=== PATIENT | male | born 1970 | race Caucasian/White ===

== ENCOUNTER 2024-10-18 10:52 | Observation (INO) | payer OTHER ==
[~2024-10-18] VITALS: Ht 185.4 cm; Wt 208.1 kg
[2024-10-18] MEDS ORDERED: Ketorolac Tromethamine 15mg Vial IV ONE (11:15)
[2024-10-18] MEDS ORDERED: Ondansetron HCl 2 MG / ML 2ML Vial IV ONE (11:15)
[2024-10-18] MEDS ORDERED: NS 1,000 ML IV SCH (11:15)
[2024-10-18 11:22] LABS: BASOPHILS ABSOLUTE AUTO 0.06 K/mm3 (0.00-0.23); BASOPHILS PERCENT AUTO 1 % (0-2); EOSINOPHILS ABSOLUTE AUTO 0.02 K/mm3 (0.00-0.68); EOSINOPHILS PERCENT AUTO 0 % (0-6); Hematocrit 44.2 % (37.0-53.0); Hemoglobin 15.4 g/dL (13.5-17.5); IMMATURE GRAN ABSOLUTE AUTO 0.03 K/mm3 (0.00-0.10); IMMATURE GRAN PERCENT AUTO 0 % (0-1); LYMPHOCYTES PERCENT AUTO 21 % (21-46); MONOCYTES ABSOLUTE AUTO 0.54 K/mm3 (0.16-1.47); MONOCYTES PERCENT AUTO 6 % (4-13); Mean Corpuscular HGB 29.7 pg (26.0-34.0); Mean Corpuscular HGB Conc 34.8 g/dL (31.5-36.5); Mean Corpuscular Volume 85 fL (80-100); Mean Platelet Volume 9.8 fL (9.1-12.4); NEUTROPHILS ABSOLUTE AUTO 6.31 K/mm3 (1.96-9.15); NEUTROPHILS PERCENT AUTO 71 % (41-73); Platelet Count 271 K/mm3 (150-400); RDW Coefficient Variation 13.2 % (11.7-14.2); RDW Standard Deviation 41.2 fL (35.1-46.3); Red Blood Cell Count 5.18 M/mm3 (4.30-5.90); White Blood Cell Count 8.86 K/mm3 (4.00-11.30)
[2024-10-18 11:40] LABS: Bilirubin, Total 1.2 mg/dL (0.1-1.0); Bun/Creatinine Ratio 18.9 (12.0-20.0); Calcium, Blood 9.1 mg/dL (8.5-10.1); Creatinine, Blood 0.64 mg/dL (0.60-1.20); Globulin, Blood 3.9 g/dL (2.2-4.0); Potassium, Blood 3.8 mmol/L (3.5-5.5); Total Protein, Blood 7.9 g/dL (6.4-8.2)
[2024-10-18 11:58] LABS: Source, Urine Clean Catch
[2024-10-18 12:02] LABS: Appearance, Urine Clear (Clear); Bilirubin, Urine Neg (Neg); Blood, Urine Neg (Neg); Glucose Qualitative, Urine 4+ (Neg); Ketones, Urine 3+ (Neg); Leukocyte Esterase, Urine Neg (Neg); Nitrite, Urine Neg (Neg); Protein, Urine 2+ (Neg); Urobilinogen, Urine NORM (Normal)
[2024-10-18 12:05] LABS: Color, Urine Pale Yellow (P-Yellow)
[2024-10-18 12:08] LABS: Bacteria Not Seen /hpf; Red Blood Cells, Urine Not Seen /hpf (0-2); Squamous Epithelial Cells Rare /hpf (Few); White Blood Cells, Urine 0-2 /hpf (0-5)
[2024-10-18 12:11] LABS: Base Excess Venous -1.7 mmol/L; Bicarbonate Venous 23.6 mmol/L (24.0-30.0); PCO2 Venous 33.9 mmHg (38-42); pH Blood Venous 7.43 (7.34-7.37)
[2024-10-18] MEDS ORDERED: Polyethylene Glycol 3350 17 gm PO PRN (16:00)
[2024-10-18] MEDS ORDERED: ALPRAZolam 0.25 MG Tab PO PRN (16:05)
[2024-10-18] MEDS ORDERED: Acetaminophen 325 MG TABLET PO PRN (16:05)
[2024-10-18] MEDS ORDERED: Ketorolac Tromethamine 15mg Vial IV PRN (16:15)
[2024-10-18] MEDS ORDERED: Insulin Human Lispro 100 Units/ML 3ML Syringe SC SCH (16:30)
[2024-10-18] MEDS ORDERED: MetFORMIN HCl 500 mg PO SCH (17:00)
[2024-10-18] MEDS ORDERED: Insulin Glargine-Yfgn 100 Unit/mL 3 ML SYR SC SCH (17:00)
[2024-10-18 17:25] VITALS: BP 136/94
[2024-10-18] MEDS ORDERED: ONDA4 PO (17:35)
[2024-10-18 20:29] VITALS: BP 131/95
[2024-10-18] MEDS ORDERED: Docusate Sodium/Senna 1 Tab PO SCH (21:00)
[2024-10-18] MEDS ORDERED: NS 1,000 ML IV ONE (21:20)
[2024-10-19] MEDS ORDERED: Gabapentin 100 MG Cap PO PRN (01:40)
[2024-10-19] MEDS ORDERED: Prochlorperazine Edisylate 10 mg Vial IV PRN (01:40)
[2024-10-19] MEDS ORDERED: Melatonin 5 MG Tablet PO PRN (01:40)
--- NOTE | 2024-10-19 03:32 | NUR ---
SUMMARY: PT A/OX4, CALLS APPROPRIATELY TO SPECIFY NEEDS AND IS PLEASANT AND COOPERATIVE W/CARE. HE'S UP W/SBA AND FWW AND USES URINAL AD NARENDRA AT EOB. PT HAS CHRONIC NEUROPATHY PAIN TO R.EXT'S W/ONSET L.SIDED PAIN RECENTLY WELL. TORADOL RECEIVED PRN FOR NO AFFECT. HE ALSO C/O DIFFICULTY SLEEPING LATELY AND MILD NAGGING NAUSEA W/ "DEEP ROOTED BONE PAIN SECONDARY TO NAUSEA UPON EATING" CONCERNS DISCUSSED W/ AND NEW ORDERS RECEIVED FOR COMPAZINE 5MG PO Q6H PRN, GABAPENTIN 100MG PO AT HS PRN AND MELATONIN 5MG PO AT HS PRN. HE'S BEEN SLEEPING SINCE OBTAINING NEW MED ORDERS BUT WILL EVALUATE POSSIBLE NEED. CBG WAS 298 AT HS BUT NO DIABETES MEDS ARE RX'D AT BEDTIME. VSS/AFEBRILE AND NO ACUTE CHANGES. WILL REPORT TO DAY RN.
[2024-10-19 03:57] VITALS: BP 121/81
[2024-10-19 06:40] LABS: Hematocrit 37.5 % (37.0-53.0); Hemoglobin 13.5 g/dL (13.5-17.5); Mean Corpuscular HGB 30.8 pg (26.0-34.0); Mean Corpuscular Volume 85 fL (80-100); Mean Platelet Volume 10.5 fL (9.1-12.4); Platelet Count 237 K/mm3 (150-400); RDW Coefficient Variation 13.4 % (11.7-14.2); RDW Standard Deviation 41.9 fL (35.1-46.3); Red Blood Cell Count 4.39 M/mm3 (4.30-5.90); White Blood Cell Count 6.26 K/mm3 (4.00-11.30)
[2024-10-19 06:55] LABS: Albumin, Blood 3.3 g/dL (3.4-5.0); Anion Gap 8 mmol/L (3-11); Blood Urea Nitrogen 16 mg/dL (8-24); Bun/Creatinine Ratio 23.4 (12.0-20.0); CO2, Blood 26 mmol/L (21-32); Calcium, Blood 8.4 mg/dL (8.5-10.1); Chloride, Blood 105 mmol/L (98-108); Creatinine, Blood 0.69 mg/dL (0.60-1.20); Glomerular Filtration Rate 111 (60-); Glucose, Blood 299 mg/dL (70-99); Magnesium, Blood 1.9 mg/dL (1.6-2.4); Potassium, Blood 3.8 mmol/L (3.5-5.5); Sodium, Blood 135 mmol/L (136-145)
[2024-10-19 07:49] VITALS: BP 97/65
[2024-10-19] MEDS ORDERED: Insulin Glargine-Yfgn 100 Unit/mL 3 ML SYR SC SCH (08:00)
[2024-10-19] MEDS ORDERED: Lisinopril 10 MG Tab PO SCH (09:00)
[2024-10-19] MEDS ORDERED: Enoxaparin 40 MG/0.4 ML SYR SC SCH (09:00)
[2024-10-19] MEDS ORDERED: OxyCODONE HCL 5 MG TAB PO PRN (09:30)
[2024-10-19 10:40] VITALS: BP 120/83
[2024-10-19] MEDS ORDERED: DOCUZEN 8.6-501 EACH PO (14:56)
[2024-10-19] MEDS ORDERED: OXYC5 PO (14:57)
[2024-10-19] MEDS ORDERED: METF500 PO (14:57)
[2024-10-19] MEDS ORDERED: Prinivil10 MG PO (14:57)
[2024-10-19] MEDS ORDERED: BASAGLAR K100 UNIT/1 SC (14:57)
[2024-10-19] MEDS ORDERED: MIRALAX17 GM PO (14:58)
[2024-10-19] MEDS ORDERED: LINZESS145 MCG PO (14:58)
--- NOTE | 2024-10-19 16:25 | NUR ---
DISCHARGE NOTE PATIENT EDUCATED ON DISCHARGE PACKET AND NEW PRESCRIPTIONS. EDUCATED PATIENT ON INSULIN ADMINISTRATION AND PATIENT WAS ABLE TO CORRECLTY DEMONSTRATE BACK TO ME AT LUNCH. HARD SCRIPT FOR OXY SENT WITH PATIENT WELL HARD SCRIPT FOR GLUCOMETER. DIETITIAN DROPPED OFF EDUCATION AND I PRINTED OFF DIABETES EDUCATION FOR PATIENT WELL. PT DECLINED HOME HEALTH. IV REMOVED. PT ESCORTED DOWN VIA WHEELCHAIR AND MOTHER IS RIDE HOME. NO NEW QUESTIONS OR CONCERNS PRIOR TO DC.
== END 2024-10-19 16:48 | disposition home or self-care (01) ==
LOC: ER 10:52 → ERHOLD 10:53 → MEDS 10:53
PROVIDERS: Student in an Organized Health Care Education/Training Program; ADMIT Internal Medicine
DX: G62.89 Other specified polyneuropathies (principal); E88.01 Alpha-1-antitrypsin deficiency; J44.9 Chronic obstructive pulmonary disease, unspecified; E11.9 Type 2 diabetes mellitus without complications; I25.2 Old myocardial infarction; Z79.4 Long term (current) use of insulin; Z79.899 Other long term (current) drug therapy; Z87.891 Personal history of nicotine dependence
CPT/HCPCS: 36415; 71046; 74177; 80053; 80069; 81001; 82010; 82803; 82947; 83036; 83690; 83735; 84484; 85025; 85027; 93005; 93010; 94760; 96361; 96372; 96374-59; 96375; 96376; 99285-25; A9270; G0378; J0780; J1650; J1815; J1885; J2405; J7030; Q9967